=== PATIENT | female | born 1970 | race Caucasian/White ===

== ENCOUNTER 2017-04-27 03:34 | Emergency (ER) | payer OTHER, SELFPAY ==
[~2017-04-27] VITALS: Ht 165.1 cm; Wt 189.9 kg
[2017-04-27 03:36] VITALS: BP 154/86
[2017-04-27] MEDS ORDERED: KETOROLAC 30 MG/1 ML IM ONE (04:00)
[2017-04-27] MEDS ORDERED: KETOROLAC 30 MG/1 ML ONE (04:20)
== END 2017-04-27 05:03 | disposition home or self-care (01) ==
LOC: ED 04:35
DX: S39.012A Strain of muscle, fascia and tendon of lower back, initial encounter (principal); E66.01 Morbid (severe) obesity due to excess calories; Z68.44 Body mass index [BMI] 60.0-69.9, adult; Z87.891 Personal history of nicotine dependence; X58.XXXA Exposure to other specified factors, initial encounter; Y93.89 Activity, other specified; Y92.89 Other specified places as the place of occurrence of the external cause; Y99.9 Unspecified external cause status
CPT/HCPCS: 96372; 99283; J1885

== ENCOUNTER 2017-05-12 10:33 | Emergency (ER) | payer OTHER ==
[~2017-05-12] VITALS: Ht 165.1 cm; Wt 182.0 kg
[2017-05-12 10:36] VITALS: BP 138/98
[2017-05-12] MEDS ORDERED: OXYcodone/APAP 5/325MG TABLET ONE (11:19)
[2017-05-12] MEDS ORDERED: METHOCARBAMOL 750 MG TABLET ONE (11:19)
[2017-05-12] MEDS ORDERED: KETOROLAC 30 MG/1 ML ONE (11:19)
[2017-05-12] MEDS ORDERED: KETOROLAC 30 MG/1 ML IM ONE (11:30)
[2017-05-12] MEDS ORDERED: METHOCARBAMOL 750 MG TABLET PO ONE (11:30)
[2017-05-12] MEDS ORDERED: OXYcodone/APAP 5/325MG TABLET PO ONE (11:30)
== END 2017-05-12 12:20 | disposition home or self-care (01) ==
LOC: ED 12:10
DX: S76.112A Strain of left quadriceps muscle, fascia and tendon, initial encounter (principal); M46.1 Sacroiliitis, not elsewhere classified; X58.XXXA Exposure to other specified factors, initial encounter; Y93.89 Activity, other specified; Y92.89 Other specified places as the place of occurrence of the external cause; Y99.9 Unspecified external cause status
CPT/HCPCS: 96372; 99283; J1885

== ENCOUNTER 2018-01-08 03:03 | Emergency (ER) | payer OTHER ==
[~2018-01-08] VITALS: Ht 165.1 cm; Wt 157.8 kg
[2018-01-08 03:12] VITALS: BP 162/93
[2018-01-08 03:52] LABS: BASOPHILS # (AUTO) 0.04 x10^3/uL (0-0.1); BASOPHILS % (AUTO) 0 % (0-1); EOSINOPHILS # (AUTO) 0.23 x10^3/uL (0-0.4); EOSINOPHILS % (AUTO) 2 % (1-7); LYMPHOCYTES # (AUTO) 3.24 x10^3/uL (1-3.4); LYMPHOCYTES % (AUTO) 29 % (22-44); MD NO; MEAN CORPUSCULAR HEMOGLOBIN 32.2 pg (27.0-34.8); MEAN CORPUSCULAR HGB CONC 33.4 g/dL (32.4-35.8); MEAN CORPUSCULAR VOLUME 96.4 fL (80-100); MONOCYTES # (AUTO) 0.98 x10^3/uL (0.2-0.8); MONOCYTES % (AUTO) 9 % (2-9); NEUTROPHILS # (AUTO) 6.85 x10^3/uL (1.8-6.8); NEUTROPHILS % (AUTO) 60 % (42-75); PLATELET COUNT 283 x10^3/uL (130-400); RED BLOOD COUNT 5.21 x10^6/uL (3.82-5.3); RED CELL DISTRIBUTION WIDTH 14.8 % (9.6-15.2)
[2018-01-08 04:08] LABS: CULTURE INDICATED? YES; MICROSCOPIC INDICATED
[2018-01-08 04:08] LABS: ALBUMIN 3.2 g/dL (3.4-5.0); ANION GAP 6 mmol/L (5-15); CALCIUM 9.6 mg/dL (8.5-10.1); CHLORIDE 106 mmol/L (98-107)
[2018-01-08 04:09] LABS: CREATININE 1.28 mg/dL (0.55-1.02)
== END 2018-01-08 05:09 | disposition home or self-care (01) ==
LOC: ED 05:00
DX: R10.2 Pelvic and perineal pain (principal); R35.0 Frequency of micturition
CPT/HCPCS: 36415; 80048; 81001; 82040; 85025; 87086; 99284

== ENCOUNTER 2018-10-28 15:51 | Emergency (ER) | payer SELFPAY ==
[~2018-10-28] VITALS: Ht 165.1 cm; Wt 128.2 kg
[2018-10-28 15:54] VITALS: BP 122/80
[2018-10-28] MEDS ORDERED: HYDROcodone/APAP 5/325 TABLET PO ONE (16:30)
[2018-10-28] MEDS ORDERED: HYDROcodone/APAP 5/325 TABLET ONE (17:12)
--- NOTE | 2018-10-28 17:56 | NUR ---
pt a&o, resps even and unlabored. wrist lacer placed by edt, pt tolerated well. pt amb to dc desk with steady gait, nadn at dc. pt instructed not to drive today, pt states son is waiting in parking lot to drive her home.
== END 2018-10-28 17:51 | disposition home or self-care (01) ==
LOC: ED 17:15
DX: S63.502A Unspecified sprain of left wrist, initial encounter (principal); X58.XXXA Exposure to other specified factors, initial encounter; Y93.89 Activity, other specified; Y92.009 Unspecified place in unspecified non-institutional (private) residence as the place of occurrence of the external cause; Y99.8 Other external cause status
CPT/HCPCS: 29260; 99283

== ENCOUNTER 2019-02-17 18:48 | Emergency (ER) | payer OTHER ==
[~2019-02-17] VITALS: Ht 165.1 cm; Wt 127.6 kg
[2019-02-17 18:51] VITALS: BP 111/74
== END 2019-02-17 20:14 | disposition home or self-care (01) ==
LOC: ED 19:45
DX: G89.11 Acute pain due to trauma (principal); M41.86 Other forms of scoliosis, lumbar region; M47.896 Other spondylosis, lumbar region; M54.5 Low back pain; M25.552 Pain in left hip; K21.9 Gastro-esophageal reflux disease without esophagitis; Z90.49 Acquired absence of other specified parts of digestive tract; Z72.9 Problem related to lifestyle, unspecified; W01.0XXA Fall on same level from slipping, tripping and stumbling without subsequent striking against object, initial encounter; Y93.01 Activity, walking, marching and hiking; Y92.098 Other place in other non-institutional residence as the place of occurrence of the external cause; Y99.8 Other external cause status
CPT/HCPCS: 72110; 73502; 96372; 99283; J1885

== ENCOUNTER 2019-10-01 14:20 | Emergency (ER) | payer MEDICAID, OTHER ==
[2019-10-01 14:29] VITALS: BP 142/95
--- NOTE | 2019-10-01 14:49 | NUR ---
PT TO ROOM VIA WHEELCHAIR.
== END 2019-10-01 16:39 | disposition home or self-care (01) ==
LOC: ED 16:00
DX: S83.412A Sprain of medial collateral ligament of left knee, initial encounter (principal); K21.9 Gastro-esophageal reflux disease without esophagitis; Z87.891 Personal history of nicotine dependence; X50.1XXA Overexertion from prolonged static or awkward postures, initial encounter; Y93.89 Activity, other specified; Y92.009 Unspecified place in unspecified non-institutional (private) residence as the place of occurrence of the external cause; Y99.8 Other external cause status
CPT/HCPCS: 99283

== ENCOUNTER 2019-12-22 13:12 | Outpatient (CLI) | payer MEDICAID | END 2019-12-22 23:59 | disposition home or self-care (01) | LOC: STAR 13:12 | PROVIDERS: ATTEND Internal Medicine Gastroenterology | DX: Z11.59 Encounter for screening for other viral diseases (principal) | CPT/HCPCS: U0001-CS ==

== ENCOUNTER 2019-12-29 08:38 | Day surgery (SDC) | payer MEDICAID ==
[~2019-12-29] VITALS: Ht 166.4 cm; Wt 135.6 kg
[2019-12-29 09:23] VITALS: BP 142/90
[2019-12-29] MEDS ORDERED: CHLORHEXIDINE 15 ML UDC MM STA (09:25)
[2019-12-29] MEDS ORDERED: LACTATED RINGERS 1,000 ML IV STA (09:25)
[2019-12-29] MEDS ORDERED: CHLORHEXIDINE 15 ML UDC ONE (09:29)
[2019-12-29 09:39] LABS: HCG UR SG 1.017 (1.003-1.030)
[2019-12-29] MEDS ORDERED: CHLORHEXIDINE 15 ML UDC MM ONE (10:00)
[2019-12-29] MEDS ORDERED: LACTATED RINGERS 1,000 ML IV ONE (10:00)
[2019-12-29] MEDS ORDERED: PROPOFOL 10 MG/ML, 20ML ONE ×3 (11:03→11:29)
== END 2019-12-29 15:45 | disposition home or self-care (01) ==
LOC: OUT 08:38
PROVIDERS: ATTEND Internal Medicine Gastroenterology
DX: Z12.11 Encounter for screening for malignant neoplasm of colon (principal); E66.01 Morbid (severe) obesity due to excess calories; G47.33 Obstructive sleep apnea (adult) (pediatric); K21.9 Gastro-esophageal reflux disease without esophagitis; I25.2 Old myocardial infarction; J45.909 Unspecified asthma, uncomplicated; Z68.42 Body mass index [BMI] 45.0-49.9, adult; Z79.1 Long term (current) use of non-steroidal anti-inflammatories (NSAID); Z79.899 Other long term (current) drug therapy; Z86.718 Personal history of other venous thrombosis and embolism; Z87.19 Personal history of other diseases of the digestive system; Z87.891 Personal history of nicotine dependence; Z88.8 Allergy status to other drugs, medicaments and biological substances
CPT/HCPCS: 45378; 81025; J2704; J7120; U0001-CS

== ENCOUNTER 2020-01-16 15:31 | Emergency (ER) | payer MEDICAID ==
[~2020-01-16] VITALS: Ht 165.1 cm; Wt 134.5 kg
--- NOTE | 2020-01-16 16:37 | NUR ---
Pt to room from lobby.
--- NOTE | 2020-01-16 16:50 | NUR ---
POST VOID RESIDUAL = 115 ML. RV'WD POC WITH PT.
[2020-01-16 17:17] LABS: BASOPHILS # (AUTO) 0.02 x10^3/uL (0-0.1); BASOPHILS % (AUTO) 0 % (0-1); EOSINOPHILS # (AUTO) 0.13 x10^3/uL (0-0.4); EOSINOPHILS % (AUTO) 2 % (1-7); LYMPHOCYTES # (AUTO) 1.96 x10^3/uL (1-3.4); LYMPHOCYTES % (AUTO) 22 % (22-44); MD NO; MEAN CORPUSCULAR HEMOGLOBIN 32.3 pg (27.0-34.8); MEAN CORPUSCULAR HGB CONC 33.1 g/dL (32.4-35.8); MEAN CORPUSCULAR VOLUME 97.6 fL (80-100); MEAN PLATELET VOLUME 8.1 fL (7.4-10.4); MONOCYTES # (AUTO) 0.76 x10^3/uL (0.2-0.8); MONOCYTES % (AUTO) 9 % (2-9); NEUTROPHILS # (AUTO) 5.91 x10^3/uL (1.8-6.8); NEUTROPHILS % (AUTO) 67 % (42-75); PLATELET COUNT 281 x10^3/uL (130-400); RED BLOOD COUNT 4.72 x10^6/uL (3.82-5.3); RED CELL DISTRIBUTION WIDTH 13.9 % (9.6-15.2)
--- NOTE | 2020-01-16 17:17 | NUR ---
PT TO IMAGING VIA [employer].
[2020-01-16 17:28] LABS: ALBUMIN 2.9 g/dL (3.4-5.0); ANION GAP 6 mmol/L (5-15); CALCIUM 8.4 mg/dL (8.5-10.1); CHLORIDE 111 mmol/L (98-107); CREATININE 0.74 mg/dL (0.55-1.02)
[2020-01-16 17:30] LABS: MICROSCOPIC INDICATED
[2020-01-16 17:34] LABS: ALANINE AMINOTRANSFERASE 19 U/L (12-78); ALKALINE PHOSPHATASE 80 U/L (45-117); BILIRUBIN,TOTAL 0.3 mg/dL (0.2-1.0); TOTAL PROTEIN 6.4 g/dL (6.4-8.2)
--- NOTE | 2020-01-16 18:33 | NUR ---
ERP AT BS FOR PELVIC EXAM NOW.
[2020-01-16 18:52] LABS: CLUE CELLS NONE SEEN (NONE SEEN); WET PREP WBCS FEW (FEW)
--- NOTE | 2020-01-16 19:57 | NUR ---
REPORTED TO JODEE JOHNSON.
[2020-01-16 19:58] VITALS: BP 107/70
--- NOTE | 2020-01-16 19:59 | NUR ---
REPORT FROM ALEX LOW. PT RECLINED IN BED WATCHING TELEVISION. PT MAKES JOKES WITH RN, LAUGHS AT TELEVISION. NAD NOTED AT THIS TIME. RESPIRATIONS EVEN AND UNLABORED ON RA. PT AWAITING RECHECK.
== END 2020-01-16 20:37 ==
LOC: ED 20:31
DX: N30.00 Acute cystitis without hematuria (principal); K21.9 Gastro-esophageal reflux disease without esophagitis; Z90.09 Acquired absence of other part of head and neck
CPT/HCPCS: 36415; 74021; 80053; 81001; 83605; 85025; 87086; 87210; 87491; 87591; 87808; 99284

== ENCOUNTER 2020-01-28 04:06 | Emergency (ER) | payer MEDICAID ==
[~2020-01-28] VITALS: Ht 165.1 cm; Wt 135.0 kg
[2020-01-28 04:16] VITALS: BP 130/74
[2020-01-28] MEDS ORDERED: KETOROLAC 30 MG/1 ML ONE ×2 (05:08→05:11)
[2020-01-28] MEDS ORDERED: METHOCARBAMOL 500 MG TABLET ONE (05:08)
[2020-01-28] MEDS ORDERED: METHOCARBAMOL 750 MG TABLET ONE (05:12)
[2020-01-28] MEDS ORDERED: METHOCARBAMOL 750 MG TABLET PO ONE (05:30)
[2020-01-28] MEDS ORDERED: KETOROLAC 30 MG/1 ML IM ONE (05:30)
--- NOTE | 2020-01-28 05:58 | NUR ---
Pt appears to be sleeping as evidenced by eyes closed and even breathing.
== END 2020-01-28 06:50 | disposition home or self-care (01) ==
LOC: ED 05:10
DX: S39.012A Strain of muscle, fascia and tendon of lower back, initial encounter (principal); K21.9 Gastro-esophageal reflux disease without esophagitis; Z90.89 Acquired absence of other organs; X58.XXXA Exposure to other specified factors, initial encounter; Y93.89 Activity, other specified; Y92.89 Other specified places as the place of occurrence of the external cause; Y99.8 Other external cause status
CPT/HCPCS: 96372; 99283; J1885